=== PATIENT | female | born 1995 | race Caucasian/White ===

== ENCOUNTER → 2023-07-26 09:37 | Outpatient (REF) | payer OTHER, SELFPAY | LOC: REG 09:37 | PROVIDERS: ATTENDING PHYSICIAN Nurse Practitioner | DX: J06.9 Acute upper respiratory infection, unspecified (principal) | CPT/HCPCS: 71046 ==

== ENCOUNTER → 2024-06-30 13:40 | Outpatient (REF) | payer OTHER, SELFPAY ==
[2024-06-30 16:26] LABS: Urine Albumin 1+ (Neg - Trace); Urine Bilirubin Negative (Negative); Urine Character Clear (Clear); Urine Color Yellow; Urine Glucose Negative (Negative); Urine Ketone Negative (Negative); Urine Leukocyte Negative (Negative); Urine Nitrite Negative (Negative); Urine Occult Blood 3+ (Negative); Urine Urobilinogen Negative (Neg - 1+)
[2024-06-30 16:39] LABS: Urine Bacteria Many (Negative); Urine Squamous Cell >30 /LPF (Few); Urine White Cell 0-2 /HPF (0-5)
[2024-06-30 16:44] LABS: ALT (SGPT) 13 U/L (0-35); AST (SGOT) 17 U/L (14-36); Albumin 4.2 g/dl (3.5-5.0); Alkaline Phosphatase 53 U/L (38-126); Blood Urea Nitrogen 15 mg/dl (7-17); Calcium 9.5 mg/dl (8.4-10.2); Carbon Dioxide 27 mmol/L (22-30); Chloride 104 mmol/L (98-107); Glucose 74 mg/dl (70-99); HDL Cholesterol 43 mg/dl; LDL Cholesterol, Calculated 98 mg/dl; Potassium 4.3 mmol/L (3.5-5.1); Sodium 139 mmol/L (135-145); Total Bilirubin 0.6 mg/dl (0.2-1.3); Total Cholesterol 212 mg/dl (50-199); Total Protein 6.6 g/dl (6.3-8.2); Triglyceride 357 mg/dl (10-149); Very Low Density Lipoprotein 71 mg/dl (0-30); eGFR > 60.00
[2024-06-30 16:55] LABS: % Basophils 0.4 % (0-2); % Eosinophils 1.8 % (0-6); % Immature Granulocytes 0.3 % (0-0.5); % Lymphocytes 32.1 % (20.5-51.1); % Monocytes 6.3 % (1.7-9.3); % Neutrophils 59.1 % (42.2-75.2); Absolute Eosinophils 0.1 10^3/uL (0-0.7); Absolute Lymphocytes 2.3 10^3/uL (1.2-3.4); Absolute Monocytes 0.5 10^3/uL (0.1-0.6); Absolute Neutrophils 4.2 10^3/uL (1.4-6.5); Hemoglobin 13.2 g/dL (12.0-16.0); Mean Corp Hgb Conc. 35.7 g/dL (33.0-37.0); Mean Corpuscular Hgb 30.4 pg (27.0-31.0); Mean Corpuscular Volume 85.3 fL (81.0-99.0); Nucleated Red Blood Cells % 0 %; Red Blood Cell Count 4.34 10^6/uL (4.20-5.40); Red Cell Dist. Width 11.3 % (11.5-14.5); White Blood Cell Count 7.1 10^3/uL (4.8-10.8)
[2024-06-30 17:10] LABS: Rubella Positive
[2024-06-30 17:20] LABS: Vitamin D, 25-OH*** 43.5 ng/mL (30-80)
[2024-06-30 17:34] LABS: TSH Reflex To Free T4 2.39 uIU/ml (0.47-4.68)
[2024-06-30 17:55] LABS: HIV Combo Negative (Negative)
[2024-06-30 18:02] LABS: Hepatitis C Antibody Reactive (Negative)
[2024-07-01 08:55] LABS: Glycohemoglobin (HgbA1c) 4.7 % (4.0-5.6)
[2024-07-01 23:55] LABS: IgA 63 mg/dl (70-400)
[2024-07-02 12:11] LABS: Mumps Virus IgG Positive; Rubeola (Measles) IgG Positive
== END ==
LOC: REG 13:40
PROVIDERS: ATTENDING PHYSICIAN Nurse Practitioner Primary Care
DX: Z11.3 Encounter for screening for infections with a predominantly sexual mode of transmission (principal); R39.9 Unspecified symptoms and signs involving the genitourinary system; Z11.59 Encounter for screening for other viral diseases; F41.9 Anxiety disorder, unspecified; Z13.0 Encounter for screening for diseases of the blood and blood-forming organs and certain disorders involving the immune mechanism
CPT/HCPCS: 80053; 80061; 81003; 81015; 82306; 82784; 83036; 83516; 84443; 85025; 86231; 86735; 86762; 86765; 86780; 86803; 87086; 87389; 87491; 87529; 87591